=== PATIENT | male | born 1960 | race Caucasian/White ===

== ENCOUNTER 2020-12-04 20:15 | Emergency (ER) | payer BC ==
[2020-12-04] MEDS ORDERED: Bacitracin Oint 1 GM U/D Packet TOP ONE (20:29)
--- NOTE | 2020-12-04 20:53 | EDM.PDOC ---
ED HPI GENERAL MEDICAL PROBLEM - General Chief Complaint: Laceration Stated Complaint: FISHHOOK L HAND Time Seen by Provider: 12/04/20 20:40 Source of Information: Reports: Patient History Limitations: Reports: No Limitations - History of Present Illness INITIAL COMMENTS - FREE TEXT/NARRATIVE: 60-year-old male with a fishhook embedded into his left hand for the past hour and a half. It is on the dorsal aspect of the base of the thumb near the MP joint. No other complaints. Onset: Sudden Duration: Hour(s): (2 hours ago) Location: Reports: Upper Extremity, Left Associated Symptoms: Reports: No Other Symptoms - Related Data Allergies Allergy/AdvReac Type Severity Reaction Status Date / Time No Known Allergies Allergy Verified 12/04/20 20:38 Home Meds: Home Meds Pantoprazole Sodium [Protonix] 40 mg PO DAILY 12/04/20 [History] Rosuvastatin [Crestor] 5 mg PO BEDTIME 12/04/20 [History] ED ROS GENERAL - Review of Systems Review Of Systems: See Below Constitutional: Denies: Fever, Chills Respiratory: Denies: Shortness of Breath Cardiovascular: Denies: Chest Pain GI/Abdominal: Denies: Nausea, Vomiting Musculoskeletal: Reports: No Symptoms Neurological: Reports: No Symptoms ED EXAM, SKIN/RASH Exam: See Below Exam Limited By: No Limitations General Appearance: Alert, No Apparent Distress Head: Atraumatic Respiratory/Chest: No Respiratory Distress, Lungs Clear Cardiovascular: Regular Rate, Rhythm Extremities: Other (Exam is otherwise limited to the left hand. The patient has a fishhook embedded into the soft tissue on the dorsal aspect of the thumb just distal to the MP joint) Neurological: Alert, Oriented Psychiatric: Normal Affect, Normal Mood Course - Vital Signs Last Recorded V/S: Last Vital Signs Temp 96.8 F L 12/04/20 20:27 Pulse 70 12/04/20 20:27 Resp 16 12/04/20 20:27 BP 154/93 H 12/04/20 20:27 Pulse Ox 94 L 12/04/20 20:27 - Orders/Labs/Meds Meds: Medications Discontinued Medications Generic Name Dose Route Start Last Admin Trade Name Freq PRN Reason Stop Dose Admin Bacitracin 1 dose 12/04/20 20:29 12/04/20 20:39 Bacitracin Oint 1 Gm U/D Packet TOP 12/04/20 20:30 1 dose ONETIME ONE Administration Diphtheria/Tetanus/Acell Pertussis 0.5 ml 12/04/20 21:08 12/04/20 21:25 Diphtheria,Pertussis(Acell),Tetanus Vaccine 0.5 Ml Syringe IM 12/04/20 21:09 0.5 ml .ONCE ONE Administration Lidocaine HCl 5 ml 12/04/20 20:29 12/04/20 20:38 Lidocaine 1% 5 Ml Sdv INJECT 12/04/20 20:30 5 ml ONETIME ONE Administration - Re-Assessments/Exams Free Text/Narrative Re-Assessment/Exam: 12/05/20 00:40 The injury was sterilized with alcohol, infiltrated with 1% lidocaine, and the fishhook was actually pushed through the skin and cut off, then retracted back through the skin and removed. Small puncture wounds were cleansed thoroughly with alcohol, topical bacitracin was applied along with a Band-Aid. He did receive a Tdap booster. Patient will keep the wounds clean while healing and return if signs of infection. Departure - Departure Time of Disposition: 21:28 Disposition: Home, Self-Care 01 Clinical Impression: Puncture wound - Discharge Information Instructions: Puncture Wound Referrals: PCP,None [Primary Care Provider] - Forms: ED Department Discharge Care Plan Goals: Keep wound covered and clean while healing, recheck at any time if concerns of infection or not healing satisfactorily. Keep fishing. Sepsis Event Note (ED) - Evaluation Sepsis Screening Result: No Definite Risk - Focused Exam Vital Signs: Vital Signs Temp Pulse Resp BP Pulse Ox 12/04/20 20:27 96.8 F L 70 16 154/93 H 94 L 12/04/20 20:26 96.8 F L 70 16 154/93 H 94 L
[2020-12-04] MEDS ORDERED: Diphtheria,Pertussis(Acell),Tetanus Vaccine 0.5 ML Syringe IM ONE (21:08)
== END 2020-12-04 21:45 | disposition home or self-care (01) ==
LOC: JP.ED 20:15
DX: S61.442A Puncture wound with foreign body of left hand, initial encounter (principal); Z23 Encounter for immunization; W45.8XXA Other foreign body or object entering through skin, initial encounter
CPT/HCPCS: 90471; 90715; 99282